=== PATIENT | male | born 1955 | race Caucasian/White ===

== ENCOUNTER 2020-05-30 16:06 | Outpatient (CLI) | payer BC, MEDICARE, SELFPAY ==
--- NOTE | ~2020-05-30 | CT_ITS ---
EXAMINATION: CT abdomen pelvis wo con DATE: 05/30/2020 16:56 INDICATION: Abdominal pain. TECHNIQUE: Computed tomography (CT) of the abdomen and pelvis was performed without intravenous contr ast. Automated exposure control and iterative reconstruction technique were employed. The dose-length product was 1155.89 mGy-cm. COMPARISON: CT abdomen and pelvis 10/25/2009 FINDINGS: The visualized portions of the lung bases are clear without pneumonia or pleural effusion. The heart size is normal. No pericardial effusion. The liver and spleen are normal. There are gallsto carlos in the gallbladder, which is normal in size. The pancreas and adrenal glands are normal. There is a 2 mm stone in right kidney. There are peripelvic cysts in left kidney measuring up to 2.8 cm. Ther e is diverticulosis of the colon without evidence of diverticulitis. There are no dilated loops of taylor wel. The appendix is normal. There is an umbilical hernia containing fat. There are no pathologically enlarged lymph nodes. There is no free intraperitoneal fluid. There is mild thoracolumbar spondylosi s. IMPRESSION: 1. Umbilical hernia containing fat. 2. Cholelithiasis. Reviewed, dictated and finalized at location A. E MASTER
[2020-05-30 16:46] LABS: Hematocrit 43.5 % (42.0-52.0); Mean Corpuscular HGB Conc 34.5 g/dl (32-36); Mean Corpuscular Hemoglobin 30.5 pg (26-34); Mean Corpuscular Volume 88.4 fl (80-100); Mean Platelet Volume 9.5 fl (7.4-10.4); Platelet Count Result 200 k/mm3 (150-375); Red Blood Count 4.92 M/mm3 (4.6-6.20); Red Cell Distribution Width 13.4 % (11.5-14.5)
[2020-05-30 16:58] LABS: Alanine Aminotransferase 17 U/L (4-50); Albumin Level 4.1 g/dL (3.5-5.1); Alkaline Phosphatase 77 U/L (38-126); Anion Gap 2 mmol/L (8-16); Aspartate Amino Transferase 22 U/L (17-59); Bilirubin,Total 0.7 mg/dL (0.2-1.3); Blood Urea Nitrogen 15 mg/dL (9-20); Calcium 9.1 mg/dL (8.4-10.2); Carbon Dioxide 32 mmol/L (22-30); Chloride 103 mmol/L (98-107); Cholesterol 199 mg/dL (0-200); Estimated Glomerular Filt Rate > 60; Glucose 116 mg/dL (75-110); HDL Direct 41 mg/dL; Potassium 4.7 mmol/L (3.4-5.0); Sodium 137 mmol/L (137-145); Triglycerides 241 mg/dL (<150)
[2020-05-30 17:09] LABS: LDL Cholesterol Direct 105 mg/dL
[2020-05-30 17:13] LABS: Add Urine Microscopic? YES; Appearance Urine Clear (Clear); Bilirubin Urine Negative (Negative); Blood Urine Negative (Negative); Color Urine Yellow (Yellow); Glucose Urine UA Negative (Negative); Ketones Urine Negative (Negative); Leukocyte Esterase Ur Negative LEU/UL (NEGATIVE); Mucus Urine Rare /lpf; Nitrate Urine Negative (Negative); Protein Urine Negative (Negative); RBC Urine 0-2 /hpf (0-2); Squamous Epithelial Cell Urine Occasional /hpf (Few); WBC Urine 0-3 /hpf (0-3)
[2020-05-30 17:29] LABS: Prostate Specific Antigen 0.6 ng/mL (< OR = 4.0)
[2020-05-30 18:40] LABS: Free T4 Free Thyroxine 0.74 ng/mL (0.78-2.19)
== END 2020-05-30 16:07 | disposition home or self-care (01) ==
PROVIDERS: PCP Emergency Medicine; Visit Provider Emergency Medicine
DX: K42.9 Umbilical hernia without obstruction or gangrene (principal); I10 Essential (primary) hypertension; K80.20 Calculus of gallbladder without cholecystitis without obstruction
CPT/HCPCS: 36415; 74176; 80053; 80061; 81001; 82607; 82746; 83036; 84153; 84439; 84443; 85027

== ENCOUNTER → 2020-05-31 16:26 | Outpatient (CLI) | payer BC, MEDICARE, SELFPAY ==
--- NOTE | ~2020-05-31 | XR_ITS ---
EXAMINATION:XR cervical spine 4-5V DATE: 05/31/2020 16:47 INDICATION: Bilateral hand numbness and tingling TECHNIQUE: AP, lateral, lateral swimmers and odontoid views of the cervical spine are provided. COMPARISON: None FINDINGS: 2 mm anterolisthesis C4 on C5. Straightening of the normal cervical lordosis. Odontoid is intact. No rmal atlantoaxial interval. Vertebral body heights are normal. Minimal disc height loss at C4-C5. Mul tilevel moderate facet osteoarthritis most prominent on the left at C4-C5. Prevertebral soft tissues are normal. Visualized bilateral upper lung zones are clear. IMPRESSION: 1. 2 mm anterolisthesis 4 on C5 with minimal associated disc height loss and moderate left-sided face t osteoarthritis at this level. Reviewed, dictated and finalized at location A. HOBBER IMPRESSION: 1. 2 mm anterolisthesis 4 on C5 with minimal associated disc height loss and mo derate left-sided facet osteoarthritis at this level.
== END ==
PROVIDERS: PCP Emergency Medicine; Visit Provider Emergency Medicine
DX: R20.2 Paresthesia of skin (principal); M50.30 Other cervical disc degeneration, unspecified cervical region
CPT/HCPCS: 72050

== ENCOUNTER 2020-08-27 13:01 | Outpatient (CLI) | payer BC, MEDICARE, SELFPAY ==
--- NOTE | ~2020-08-27 | DEXA_ITS ---
Bone Density Report Name: Juanjo Early Age: 64 Sex: Male Ethnicity: White Date of : 1955 Indication: height loss; prior fracture; Referring Provider: Robert Arreaga Study: Bone densitometry was performed. Exam Date: August 27, 2020 Accession number: [id number] Bone Density: Region BMD T-score Z-score Classification AP Spine (L1-L4) 1.087 0.0 0.8 Normal World Health Organization criteria for BMD impression classify patients as: Normal (T-score at or above -1.0), Osteopenia (T-score between -1.0 and -2.5), or Osteoporosis (T-score at or below -2.5). Clinical Information Provided by Patient: Have had a previous hip or vertebral fracture Has had a low trauma fracture Has used the following medications: Vitamin D Patient maximum height was 72 Drinks caffeinated beverages Impression: The patient has normal bone mass. The patient has risk factors, including: previous fracture. Discussion: INCREASED RISK OF FRACTURE DUE TO HISTORY OF LOW TRAUMA FRACTURE. The patient's previous fracture puts the patient at high risk of a future fracture. In untreated patients, the risk of osteoporotic fracture increases approximately two-fold for each 1.0 SD decrease in T-score. Low bone density is not the only risk factor for fracture; also consider factors such as patient's age, frailty or poor health, risk of falling, risk of injury, previous osteoporotic fracture, family history of osteoporosis, cigarette smoking, low body weight, etc. Not everyone with a low trauma fracture has osteoporosis; osteomalacia and other metabolic bone disorders should also be considered. Patients who have osteoporosis should be evaluated for specific diseases and conditions (secondary causes) that may cause or contribute to bone loss and fracture risk. National Osteoporosis Foundation (NOF) recommends pharmacologic intervention for patients with a prior low trauma hip or vertebral fracture regardless of BMD T-score. The patient should follow a healthful lifestyle (good nutrition with adequate calcium and vitamin D, and appropriate weight-bearing exercise). Follow-Up: Consider a repeat BMD and Vertebral Fracture Assessment (VFA) exam in 2 years or sooner if medically necessary, to reassess this patient's status. Reported by: LUBNA on 08/27/2020 1:39:00 PM. Reviewed, dictated and finalized at location Amso TILLMAN
[2020-08-27 14:35] LABS: Rheumatoid Factor < 8.6 IU/ML (<12)
[2020-08-27 15:06] LABS: Erythrocyte Sedimentation Rate 17 mm/hr (0-20)
[2020-08-27 15:41] LABS: Free T4 Free Thyroxine 0.68 ng/mL (0.78-2.19)
[2020-08-30 06:07] LABS: Thyroid Peroxidase Antibodies <1 IU/mL (<9)
[2020-08-30 07:19] LABS: Triiodothyronine T3 Free 3.4 pg/mL (2.3-4.2)
== END 2020-08-27 13:02 | disposition home or self-care (01) ==
PROVIDERS: PCP Emergency Medicine; Visit Provider Emergency Medicine
DX: S82.892A Other fracture of left lower leg, initial encounter for closed fracture (principal); M25.572 Pain in left ankle and joints of left foot; X58.XXXA Exposure to other specified factors, initial encounter
CPT/HCPCS: 36415; 77080; 84439; 84443; 84481; 85652; 86038; 86376; 86430

== ENCOUNTER 2020-12-11 15:25 | Outpatient (CLI) | payer BC, MEDICARE, SELFPAY ==
[2020-12-11 16:27] LABS: Hemoglobin A1C 6.4 % (<5.7)
[2020-12-11 16:45] LABS: Creatinine Urine 116.8 mg/dL
[2020-12-11 16:52] LABS: Microalbumin Urine Random < 6.0 mg/L (0-16.7)
[2020-12-11 16:53] LABS: MALB Creatinine Ratio < 5.1 mg/g (0-30)
[2020-12-14 04:42] LABS: Thyroid Peroxidase Antibodies <1 IU/mL (<9)
[2020-12-14 05:36] LABS: Triiodothyronine T3 Free 3.4 pg/mL (2.3-4.2)
== END 2020-12-11 15:26 | disposition home or self-care (01) ==
LOC: ANHLAB 15:32
PROVIDERS: PCP Emergency Medicine; Visit Provider Emergency Medicine
DX: E03.9 Hypothyroidism, unspecified (principal)
CPT/HCPCS: 36415; 82043; 83036; 84439; 84443; 84481; 86376

== ENCOUNTER 2021-01-22 11:39 | Outpatient (CLI) | payer BC, MEDICARE, SELFPAY ==
--- NOTE | ~2021-01-22 | XR_ITS ---
EXAMINATION: XR chest 2V DATE: 01/22/2021 11:54 INDICATION: Upper respiratory infection TECHNIQUE: PA and lateral views of the chest are obtained. COMPARISON: None available FINDINGS: There is a 10 mm nodule in the right lower lung zone. Minimal airspace opacities are presen t in the medial aspect of the right lower lobe. There is no pleural effusion or pneumothorax. The car diomediastinal silhouette is normal. There is mild thoracic spondylosis. IMPRESSION: 1. Minimal right lower lobe airspace opacities, consistent with atelectasis versus pneumonia. 2. Right lower lung zone nodule. Follow-up with CT of the chest is recommended. Reviewed, dictated and finalized at location B. IMPRESSION: 1. Minimal right lower lobe airspace opacities, consistent with atelectasis rosemarie red pneumonia. 2. Right lower lung zone nodule. Follow-up with CT of the chest is recommended.
== END 2021-01-22 11:40 | disposition home or self-care (01) ==
LOC: ANHIMG 11:46
PROVIDERS: PCP Emergency Medicine; Visit Provider Emergency Medicine
DX: J06.9 Acute upper respiratory infection, unspecified (principal)
CPT/HCPCS: 71046

== ENCOUNTER 2021-02-03 09:08 | Outpatient (CLI) | payer BC, MEDICARE, SELFPAY ==
--- NOTE | ~2021-02-03 | CT_ITS ---
EXAMINATION:CT diagnostic chest wo con DATE: 02/03/2021 09:39 INDICATION: Right lung nodule. TECHNIQUE: Computed tomography (CT) of the chest was performed without intravenous contrast. Automate d exposure control and iterative reconstruction technique were employed. The dose-length product (DLP ) was 301.71 mGy-cm. COMPARISON: CT abdomen and pelvis 05/30/2020 FINDINGS: There is mild scarring at the lung apices. There is a 1.9 cm groundglass opacity in right l ower lobe, new from 05/30/20. There is mild atelectasis bilaterally. There is a 7 mm nodule in left lo wer lobe. There is a 4 mm nodule in left lower lobe. These findings are new from 05/30/20. No pleural effusion. The heart size is normal. There are coronary artery calcifications. No pericardial effusion . There are gallstones in the gallbladder, which is normal in size. There is moderate thoracic spondy losis. IMPRESSION: 1. New pulmonary nodules, probably benign. Noncontrast low-dose chest CT is recommended in 6 months. Reviewed, dictated and finalized at location A. IMPRESSION: 1. New pulmonary nodules, probably benign. Noncontrast low-dose chest CT is rec ommended in 6 months.
== END 2021-02-03 09:09 | disposition home or self-care (01) ==
LOC: ANHIMG 09:12
PROVIDERS: PCP Emergency Medicine; Visit Provider Emergency Medicine
DX: R91.8 Other nonspecific abnormal finding of lung field (principal)
CPT/HCPCS: 71250

== ENCOUNTER 2021-06-16 16:07 | Outpatient (CLI) | payer BC, MEDICARE, SELFPAY ==
[2021-06-16 16:53] LABS: Basophils Absolute Auto 0.1 K/mm3 (0.0-0.1); Basophils Percent Auto 0.8 % (0.2-1.2); Eosinophils Absolute Auto 0.2 K/mm3 (0-0.3); Eosinophils Percent Auto 2.7 % (0-4.4); Hemoglobin 14.5 g/dL (14.0-18.0); Immature Granulocyte Absolute 0.01 K/mm3 (0.00-0.031); Immature Granulocyte Percent A 0.1 % (0-0.5); Lymphocytes Absolute Auto 2.06 K/mm3 (0.9-3.2); Lymphocytes Percent Auto 28.2 % (18.3-44.2); Mean Corpuscular HGB Conc 34.5 g/dl (32-36); Mean Corpuscular Hemoglobin 29.8 pg (26-34); Mean Corpuscular Volume 86.2 fl (80-100); Mean Platelet Volume 9.6 fl (7.4-10.4); Monocytes Absolute Auto 0.5 K/mm3 (0.1-0.6); Monocytes Percent Auto 6.4 % (2.6-8.5); Neutrophils Absolute Auto 4.5 K/mm3 (1.3-6.7); Neutrophils Percent Auto 61.8 % (45.5-73.1); Platelet Count Result 191 k/mm3 (150-375); Red Blood Count 4.87 M/mm3 (4.6-6.20); Red Cell Distribution Width 13.6 % (11.5-14.5); White Blood Count 7.3 K/mm3 (4.5-10.0)
[2021-06-16 17:06] LABS: Alanine Aminotransferase 21 U/L (4-50); Albumin Level 4.4 g/dL (3.5-5.1); Alkaline Phosphatase 75 U/L (38-126); Anion Gap 6 mmol/L (8-16); Aspartate Amino Transferase 27 U/L (17-59); Bilirubin,Total 0.5 mg/dL (0.2-1.3); Blood Urea Nitrogen 18 mg/dL (9-20); Carbon Dioxide 24 mmol/L (22-30); Chloride 103 mmol/L (98-107); Cholesterol 107 mg/dL (0-200); Estimated Glomerular Filt Rate > 60; Glucose 112 mg/dL (65-110); HDL Direct 36 mg/dL; Magnesium 2.2 mg/dL (1.6-2.3); Sodium 133 mmol/L (137-145); Triglycerides 167 mg/dL (<150)
[2021-06-16 17:17] LABS: LDL Cholesterol Direct 40 mg/dL; NT Pro B Type Natriuretic Pept 38 pg/mL (5-100); Troponin I < 0.012 ng/mL (0.000-0.034)
[2021-06-16 17:25] LABS: MALB Creatinine Ratio 4.8 mg/g (0-30); Microalbumin Urine Random 8.5 mg/L (0-16.7)
[2021-06-16 17:26] LABS: Vitamin D 25 Hydroxy 44.5 ng/mL
== END 2021-06-16 16:08 | disposition home or self-care (01) ==
LOC: ANHLAB 16:15
PROVIDERS: PCP Emergency Medicine
DX: N28.1 Cyst of kidney, acquired (principal); K57.30 Diverticulosis of large intestine without perforation or abscess without bleeding; K80.20 Calculus of gallbladder without cholecystitis without obstruction; K42.9 Umbilical hernia without obstruction or gangrene; I25.10 Atherosclerotic heart disease of native coronary artery without angina pectoris; I87.2 Venous insufficiency (chronic) (peripheral); I34.0 Nonrheumatic mitral (valve) insufficiency; E53.8 Deficiency of other specified B group vitamins; R73.03 Prediabetes
CPT/HCPCS: 36415; 80053; 80061; 82043; 82306; 82607; 83735; 83880; 84484; 85025

== ENCOUNTER 2021-09-01 15:25 | Outpatient (CLI) | payer BC, MEDICARE, SELFPAY ==
[2021-09-01 16:50] LABS: Anion Gap 6 mmol/L (8-16); Blood Urea Nitrogen 14 mg/dL (9-20); CRP < 0.5 mg/dL (<1.0); Calcium 8.4 mg/dL (8.4-10.2); Carbon Dioxide 27 mmol/L (22-30); Chloride 103 mmol/L (98-107); Cholesterol 126 mg/dL (0-200); Estimated Glomerular Filt Rate > 60; Glucose 97 mg/dL (65-110); HDL Direct 35 mg/dL; Potassium 3.8 mmol/L (3.4-5.0); Sodium 136 mmol/L (137-145); Triglycerides 428 mg/dL (<150)
[2021-09-01 16:59] LABS: LDL Cholesterol Direct 43 mg/dL
== END 2021-09-01 15:26 | disposition home or self-care (01) ==
LOC: ANHLAB 15:30
PROVIDERS: PCP Emergency Medicine
DX: R91.1 Solitary pulmonary nodule (principal); J11.1 Influenza due to unidentified influenza virus with other respiratory manifestations; N28.1 Cyst of kidney, acquired; K57.30 Diverticulosis of large intestine without perforation or abscess without bleeding; K80.20 Calculus of gallbladder without cholecystitis without obstruction; K52.9 Noninfective gastroenteritis and colitis, unspecified; Z86.16 Personal history of COVID-19; I25.10 Atherosclerotic heart disease of native coronary artery without angina pectoris; I87.2 Venous insufficiency (chronic) (peripheral)
CPT/HCPCS: 36415; 80048; 80061; 86140

== ENCOUNTER 2021-11-21 13:59 | Outpatient (CLI) | payer BC, MEDICARE, SELFPAY ==
--- NOTE | ~2021-11-21 | CT_ITS ---
EXAMINATION: CT diagnostic chest wo con DATE: 11/21/2021 14:20 INDICATION: Pulmonary nodule TECHNIQUE: Computed tomography (CT) of the chest was performed without intravenous contrast. The dose -length product (DLP) was 327.71 mGy-cm. Automated exposure control and iterative reconstruction tech Trial[employer] were employed. COMPARISON: 02/03/2021 FINDINGS: Previously described nodules in the left lower lobe and groundglass nodule of the right low er lobe have resolved. There is a stable 3 mm nodule in the superior segment of the right lower lobe. The lungs are free of acute opacities. No pleural effusion or pneumothorax. No pathologically enlarg ed thoracic lymph nodes are identified. The heart size is normal. There is calcified coronary artery atherosclerosis. There is moderate thoracic spondylosis. Stones are present in the nondistended gall bladder. IMPRESSION: 1. Interval resolution of the previously described nodules of the lower lobes, consistent with resolv ing infection/inflammation. 2. Cholelithiasis without evidence of cholecystitis. Reviewed, dictated and finalized at location B. IMPRESSION: 1. Interval resolution of the previously described nodules of the lower lobes, consistent with resolving infection/inflammation. 2. Cholelithiasis without evidence of cholecystitis.
== END 2021-11-21 14:00 | disposition home or self-care (01) ==
PROVIDERS: PCP Emergency Medicine; Visit Provider Emergency Medicine
DX: R91.1 Solitary pulmonary nodule (principal); K80.20 Calculus of gallbladder without cholecystitis without obstruction
CPT/HCPCS: 71250

== ENCOUNTER 2022-01-27 08:02 | Outpatient (CLI) | payer BC, MEDICARE, SELFPAY ==
--- NOTE | ~2022-01-27 | US_ITS ---
EXAMINATION: US art doppler w press LE BI DATE: 01/27/2022 09:13 INDICATION: Lower limb claudication TECHNIQUE: Segmental pressures and plethysmographic and Doppler waveforms of the brachial and lower e xtremity arteries were obtained. COMPARISON: None. FINDINGS: Right and left brachial artery pressures of 132 mm Hg and 161 mm Hg, respectively, are concordant (no rmal difference <= 30 mmHg). The right and left high-thigh pressure indices are 1.28 and 1.19, respec tively (normal > 1.2). The right ankle-brachial index (EDITH) is 0.99 (normal >= 0.9-1). The right great toe-brachial index (T BI) is 0.79 (normal >= 0.6-0.8). The right lower extremity segmental pressure gradients are increased between the right jdvit-hph-izcm popliteal artery and the arteries at the right ankle (normal gradie nts <= 20-30 mmHg between adjacent levels on the same leg or the same levels on the two legs). Arteri al waveforms are biphasic with brisk systolic upstrokes throughout the arteries of the right lower li mb. The left EDITH is 1.07. The left TBI is 0.70. The left lower extremity segmental pressure gradients are increased between the left dorsalis pedis artery and the left yebmu-njr-ghvv popliteal artery. Arter ial waveforms are biphasic with brisk systolic upstrokes throughout the arteries of the right lower l imb. IMPRESSION: 1. No significant arterial occlusive disease with normal bilateral ABIs and TBI's. Reviewed, dictated and finalized at location A. IMPRESSION: 1. No significant arterial occlusive disease with normal bilateral ABIs and TBI 's.
== END 2022-01-27 08:03 | disposition home or self-care (01) ==
LOC: ANHIMG 08:05
PROVIDERS: PCP Emergency Medicine; Visit Provider Emergency Medicine
DX: I73.9 Peripheral vascular disease, unspecified (principal)
CPT/HCPCS: 93923

== ENCOUNTER 2022-04-21 08:55 | Outpatient (CLI) | payer BC, MEDICARE, SELFPAY ==
--- NOTE | ~2022-04-21 | XR_ITS ---
EXAMINATION: XR chest 2V 04/21/2022 09:35 INDICATION: Cough for 10 days PROCEDURE: PA and lateral views of the chest COMPARISON: 01/23/2020 FINDINGS: The lungs are clear. The cardiomediastinal silhouette is within normal limits. There are no pleural effusions. There is no pneumothorax suspected. IMPRESSION: 1: NO ACUTE CARDIOPULMONARY DISEASE. Reviewed, dictated and finalized at location A.
[2022-04-21 10:04] LABS: SARS-CoV-2 RNA PCR Negative
== END 2022-04-21 08:56 | disposition home or self-care (01) ==
PROVIDERS: PCP Emergency Medicine; Visit Provider Emergency Medicine
DX: J06.9 Acute upper respiratory infection, unspecified (principal); R05.9 Cough, unspecified; Z20.822 Contact with and (suspected) exposure to COVID-19
CPT/HCPCS: 71046; U0003; U0005

== ENCOUNTER 2022-08-12 15:50 | Outpatient (CLI) | payer BC, MEDICARE, SELFPAY ==
[2022-08-12 16:23] LABS: Hematocrit 43.7 % (42.0-52.0); Hemoglobin 14.5 g/dL (14.0-18.0); Mean Corpuscular HGB Conc 33.2 g/dl (32-36); Mean Corpuscular Hemoglobin 29.1 pg (26-34); Mean Corpuscular Volume 87.8 fl (80-100); Mean Platelet Volume 9.4 fl (7.4-10.4); Platelet Count Result 211 k/mm3 (150-375); Red Blood Count 4.98 M/mm3 (4.6-6.20); Red Cell Distribution Width 13.7 % (11.5-14.5); White Blood Count 7.9 K/mm3 (4.5-10.0)
[2022-08-12 16:37] LABS: Alanine Aminotransferase 23 U/L (6-50); Albumin Level 4.3 g/dL (3.5-5.1); Alkaline Phosphatase 97 U/L (38-126); Anion Gap 8 mmol/L (8-16); Aspartate Amino Transferase 25 U/L (17-59); Bilirubin,Total 0.6 mg/dL (0.2-1.3); Blood Urea Nitrogen 16 mg/dL (9-20); Calcium 8.5 mg/dL (8.4-10.2); Carbon Dioxide 26 mmol/L (22-30); Chloride 102 mmol/L (98-107); Cholesterol 164 mg/dL (0-200); Estimated Glomerular Filt Rate > 60; Glucose 108 mg/dL (65-110); HDL Direct 34 mg/dL; Sodium 136 mmol/L (137-145); Triglycerides 495 mg/dL (<150)
[2022-08-12 16:48] LABS: Hemoglobin A1C 6.6 % (<5.7)
[2022-08-12 16:51] LABS: LDL Cholesterol Direct 63 mg/dL
[2022-08-12 17:04] LABS: Creatinine Urine 138.4 mg/dL
[2022-08-12 17:08] LABS: MALB Creatinine Ratio 4.5 mg/g (0-30); Microalbumin Urine Random 6.2 mg/L (0-16.7)
[2022-08-12 17:13] LABS: Free T4 Free Thyroxine 0.74 ng/mL (0.78-2.19)
== END 2022-08-12 15:51 | disposition home or self-care (01) ==
PROVIDERS: PCP Emergency Medicine; Visit Provider Emergency Medicine
DX: E03.9 Hypothyroidism, unspecified (principal); E11.9 Type 2 diabetes mellitus without complications; I10 Essential (primary) hypertension
CPT/HCPCS: 36415; 80053; 80061; 82043; 83036; 84439; 84443; 85027

== ENCOUNTER 2022-08-14 13:10 | Outpatient (CLI) | payer BC, MEDICARE, SELFPAY ==
--- NOTE | ~2022-08-14 | CT_ITS ---
EXAMINATION: CT diagnostic chest wo con DATE: 08/14/2022 13:44 INDICATION: Lung nodule TECHNIQUE: Computed tomography (CT) of the chest was performed without intravenous contrast. Automate d exposure control and iterative reconstruction technique were employed. Exam dose: 341.99 mGy-cm to allan exam DLP. COMPARISON: 04/21/2022 2 view chest 11/21/2021 CTA chest FINDINGS: No pulmonary infiltrate or consolidation or pulmonary mass lesion is detected. Normal heart size. No thoracic aortic aneurysm or dissection. Is mild thoracic aortic calcification. Coronary artery calcifications are noted. No pericardial or pleural effusion. No hilar or mediastinal mass lesion or lymphadenopathy. Probable cholelithiasis. Normal morphology of the adrenal glands. Included skeletal structures are unremarkable. IMPRESSION: No significant abnormality Reviewed, dictated and finalized at Location A. Reviewed, dictated and finalized at location B. IMPRESSION: No significant abnormality
== END 2022-08-14 13:11 | disposition home or self-care (01) ==
LOC: ANHIMG 13:12
PROVIDERS: PCP Emergency Medicine; Visit Provider Emergency Medicine
DX: R91.1 Solitary pulmonary nodule (principal)
CPT/HCPCS: 71250

== ENCOUNTER 2022-08-24 16:02 | Outpatient (CLI) | payer BC, MEDICARE, SELFPAY ==
[2022-08-24 17:18] LABS: Thyroid Stimulating Hormone 0.933 uIU/mL (0.465-4.680)
[2022-08-24 17:39] LABS: Free T4 Free Thyroxine 0.76 ng/mL (0.78-2.19)
[2022-08-27 03:43] LABS: Triiodothyronine T3 Free 3.4 pg/mL (2.3-4.2)
[2022-08-28 06:43] LABS: Thyroid Peroxidase Antibodies <1 IU/mL (<9)
== END 2022-08-24 16:03 | disposition home or self-care (01) ==
LOC: ANHLAB 16:04
PROVIDERS: PCP Emergency Medicine; Visit Provider Emergency Medicine
DX: E03.9 Hypothyroidism, unspecified (principal)
CPT/HCPCS: 36415; 84439; 84443; 84481; 86376

== ENCOUNTER 2023-01-19 15:36 | Outpatient (CLI) | payer BC, MEDICARE, SELFPAY ==
[2023-01-19 16:19] LABS: Hematocrit 42.8 % (42.0-52.0); Hemoglobin 14.3 g/dL (14.0-18.0); Mean Corpuscular HGB Conc 33.4 g/dl (32-36); Mean Corpuscular Hemoglobin 29.5 pg (26-34); Mean Corpuscular Volume 88.4 fl (80-100); Platelet Count Result 190 k/mm3 (150-375); Red Blood Count 4.84 M/mm3 (4.6-6.20); Red Cell Distribution Width 13.8 % (11.5-14.5); White Blood Count 6.5 K/mm3 (4.5-10.0)
[2023-01-19 16:34] LABS: Alanine Aminotransferase 20 U/L (6-50); Alkaline Phosphatase 88 U/L (38-126); Anion Gap 4 mmol/L (8-16); Aspartate Amino Transferase 22 U/L (17-59); Bilirubin,Total 0.4 mg/dL (0.2-1.3); Blood Urea Nitrogen 17 mg/dL (9-20); Calcium 8.7 mg/dL (8.4-10.2); Carbon Dioxide 31 mmol/L (22-30); Chloride 101 mmol/L (98-107); Cholesterol 168 mg/dL (0-200); Estimated Glomerular Filt Rate > 60; Glucose 141 mg/dL (65-110); HDL Direct 36 mg/dL; Potassium 4.2 mmol/L (3.4-5.0); Sodium 136 mmol/L (137-145); Triglycerides 482 mg/dL (<150)
[2023-01-19 16:45] LABS: LDL Cholesterol Direct 73 mg/dL
[2023-01-19 17:05] LABS: Prostate Specific Antigen 0.5 ng/mL (< OR = 4.0); Thyroid Stimulating Hormone 0.999 uIU/mL (0.465-4.680)
[2023-01-19 19:41] LABS: Creatinine Urine 149.5 mg/dL
[2023-01-19 20:03] LABS: MALB Creatinine Ratio < 4.0 mg/g (0-30); Microalbumin Urine Random < 6.0 mg/L (0-16.7)
== END 2023-01-19 15:37 | disposition home or self-care (01) ==
PROVIDERS: PCP Emergency Medicine; Visit Provider Emergency Medicine
DX: E11.9 Type 2 diabetes mellitus without complications (principal); I10 Essential (primary) hypertension; E78.5 Hyperlipidemia, unspecified
CPT/HCPCS: 36415; 80053; 80061; 82043; 84153; 84439; 84443; 85027; G0103

== ENCOUNTER 2023-08-26 15:49 | Outpatient (CLI) | payer BC, MEDICARE, SELFPAY ==
[2023-08-26 16:24] LABS: Cholesterol 110 mg/dL (0-200); HDL Direct 36 mg/dL; Triglycerides 246 mg/dL (<150)
[2023-08-26 16:35] LABS: LDL Cholesterol Direct 52 mg/dL
[2023-08-26 17:30] LABS: Free T4 Free Thyroxine 0.87 ng/mL (0.78-2.19)
== END 2023-08-26 15:50 | disposition home or self-care (01) ==
LOC: ANHLAB 15:51
PROVIDERS: PCP Emergency Medicine; Visit Provider Emergency Medicine
DX: E78.5 Hyperlipidemia, unspecified (principal)
CPT/HCPCS: 36415; 80061; 84439; 84443

== ENCOUNTER 2023-10-15 09:42 | Outpatient (CLI) | payer BC, MEDICARE, SELFPAY ==
[2023-10-15 10:54] LABS: Cholesterol 111 mg/dL (0-200); HDL Direct 41 mg/dL; Triglycerides 233 mg/dL (<150)
[2023-10-15 11:05] LABS: LDL Cholesterol Direct 54 mg/dL
[2023-10-18 10:34] LABS: CRP, High Sensitivity 0.6 mg/L
[2023-10-20 21:03] LABS: Lipoprotein A <10 nmol/L
== END 2023-10-15 09:43 | disposition home or self-care (01) ==
PROVIDERS: PCP Emergency Medicine; Visit Provider Internal Medicine Cardiovascular Disease
DX: N28.1 Cyst of kidney, acquired (principal); R91.1 Solitary pulmonary nodule; J11.1 Influenza due to unidentified influenza virus with other respiratory manifestations; K27.9 Peptic ulcer, site unspecified, unspecified as acute or chronic, without hemorrhage or perforation
CPT/HCPCS: 36415; 80061; 83695; 86141

== ENCOUNTER 2024-10-12 14:51 | Outpatient (CLI) | payer BC, MEDICARE, SELFPAY ==
--- NOTE | ~2024-10-12 | XR_ITS ---
XR hip BI 2V w AP pelvis 10/12/2024 15:50 Indication: Groin pain Procedure: AP pelvis and 2 views each hip Comparison: No prior studies for comparison. Findings: Pelvic rings intact. There is mild osteoarthritis of the hips. There is an old healed left femoral diaphyseal fracture. There is heterotopic ossification adjacent to the left femur proximally. No acute fracture. There is mild osteoarthritis of the hips. Pelvic rings intact. Mild osteitis pubi s. Impression: 1: No acute fracture. Reviewed, dictated and finalized at location A. Impression: 1: No acute fracture.
--- OUTSIDE RECORDS SUMMARY | 2024-10-12 14:57 | XMS_ITS | Clinical Summary ---
Author Organization [facility] Address [address] [place] [address] Care Team Providers Care Traffic Investigator Name Role Phone Robert Arreaga MD Primary Care Provider [phone] Allergies No known active allergies Medications Vascepa 1 gram capsule 04/14/20 21 Active ezetimibe (ZETIA) 10 mg tablet ezetimibe 10 mg tablet 06/12/19 21 Active rosuvastatin (CRESTOR) 40 mg tablet 05/15/20 21 Active losartan (COZAAR) 50 mg tablet 05/15/20 21 Active omeprazole OTC (PriLOSEC OTC) 20 mg EC tablet Take by mouth 06/12/19 21 Active cyanocobalamin (Vitamin B-12) 1,000 mcg tablet cyanocobalamin (vit B-12) 1,000 mcg tablet 06/13/19 20 Active cholecalcifero l (VITAMIN D-3) 50,000 unit capsule cholecalciferol (vitamin D3) 1,250 mcg (50,000 unit) capsule 06/12/19 21 Active aspirin 81 mg enteric coated tablet 04/14/20 21 Active hydroCHLOROthi azide (MICROZIDE) 12.5 mg capsule Take 12.5 mg by mouth every morning 09/04/19 22 Active omeprazole (PriLOSEC) 20 mg capsule 11/12/19 22 Active metFORMIN XR (GLUCOPHAGE XR) 500 mg 24 hr tablet metformin ER 500 mg tablet,extended release 24 hr 08/16/19 22 Active Active Problems Problem Noted Date Diagnosed Date Low serum T4 level 12/01/2021 Assessment & Plan (12/01/2021 4:08 PM CDT): Patient without history of thyroid disease He was found to have low Free T4 of 0.74 earlier in 2021 No other labs available This could be part of primary hypothyroidism or normal fluctuation in T4 levels. Plan: The abnormal lab reviewed and explained to patient We will check TSH with repeat free T4 Follow up and further recommendation will be decided after we obtain above test results Peptic ulcer disease 08/14/2021 Pulmonary nodule 08/14/2021 Diabetes mellitus 2020 Peripheral vascular disease 09/13/2020 Neuropathy due to type 2 diabetes mellitus 09/13 Chronic peripheral venous hy pertension with lower extremity complication 09/13/2020 Umbilical hernia 06/12/2020 Renal cyst 06/12/2020 History of severe acute resp iratory syndrome coronavirus 2 (SARS-CoV-2) disease 06/12/2020 Gallstones 06/12/2020 Diverticulosis of colon 06/12/2020 Cardiovascular symptoms 06/12/2020 Cardiovascular symptoms 06/12/2020 Venous insufficiency 11/27/2019 Mitral valve insufficiency 06/13/2019 Vitamin D deficiency 04/13/2019 Prediabetes 04/13/2019 B12 deficiency 04/13/2019 Primary hypertension 04/12/2019 Assessment & Plan (12/01/2021 4:06 PM CDT): Controlled with medication - low salt diet - continue medication per PCP Obesity 04/12/2019 Neuropathy 04/12/2019 Hypertriglyceridemia 04/12/2019 Nontraumatic complete tear of left rotator cuff 02/22/2019 Sleep apnea 01/24/2014 Surgical History Surgery Date Site/Laterality Comments HAND SURGERY 05/17/1969 - 05/16/1970 Left FINGER SURGERY 05/17/1979 - 05/16/1980 Left LEG SURGERY Bilateral KIDNEY STONE SURGERY 05/17/2009 - 05/16/2010 SHOULDER SURGERY 06/17/2013 - 07/14/2013 Right SHOULDER SURGERY 02/14/2019 - 03/16/2019 Left ANKLE SURGERY Left Medical History Medical History Date Comments Arthritis Neuropathy due to type 2 diabetes mellitus (HCC) 09/13/2020 Renal cyst Gallstones Diverticulosis of colon Umbilical hernia Hypertension Vitamin D deficiency Sleep apnea, obstructive Vitamin B 12 deficiency Hypertriglyceridemia Mitral valve insufficiency Peripheral vascular disease Family History Medical History Relation Name Comments Heart disease Father Lung disease Mother Relation Name Status Comments Father Mother Social History Tobacco Use Types Packs/Day Years Used Date Smoking Tobacco: Never Smokeless Tobacco: Never AUDIT-C Answer Date Recorded Q1: How often do you have a drink containing alc ohol? Monthly or less 06/23/2021 Average Number of Drinks Not on file 022 Frequency of Binge Drinking Not on file 11/2021 Personal Safety Answer Date Recorded Getting School Help Needed Not on file 05/15 Sex and Gender Information Value Date Recorded Sex Assigned at Not on file Legal Sex Male 8:07 PM HAND LACER Gender Identity Not on file Sexual Orientation Not on file Obstetrics History Last Filed Vital Signs Vital Sign Reading Time Taken Comments Blood Pressure 120/62 12/01/2021 3:35 PM CDT Pulse 74 11/24/2021 2:46 PM CDT Temperature 36.7 C (98 F) 06/02/2021 3:13 PM HAND LACER Respiratory Rate 18 11/24/2021 2:46 PM CDT Oxygen Saturation 92% 11/24/2021 2:46 PM CDT Inhaled Oxygen Concentration - - Weight 111.8 kg (246 lb 6.4 oz) 12/01/2021 3:35 PM CDT Height 180.3 cm (5' 11) 12/01/2021 3:35 PM CDT Body Mass Index 34.37 12/01/2021 3:35 PM CDT Plan of Treatment Health Maintenance Due Date Last Done Comments Albumin Creatinine Ratio, Urine 1955 Colon Cancer Screening-Colonoscopy 1955 Depression Screening 1955 Fall Risk Assessment 1955 Hemoglobin A1C 1955 Hepatitis C Screening 1955 eGFR 1955 Dilated Eye Exam 1955 Foot Exam 1955 Lipid Panel 1955 DTaP/Tdap/Td Vaccine (1 - Tdap) 1964 Hepatitis B Screening 10/18/1971 Pneumococcal vaccine 65+ (1 of 2 - PCV) 1972 Zoster Vaccine (1 of 2) 10/18/2003 Abdominal Aortic Aneurysm (AAA) Screen 2018 Well Visit 65+ 2018 Covid-19 Vaccine ( season) 01/16/202404/2022, 05/07/2021 Influenza Vaccine (Season Ended) 2025 Insurance MEDICARE [employer] OOS MEDICARE BLUE ACC CHOICE OOS Member Subscriber Plan / Payer (Ef fective 2022-Present) Name:Sharath Juanjo Mack Relation to Subscriber:Self Name:Juanjo Early Payer ID:[id number] (NAIC) Type:[facility] Address: [facility] [id number] [id number] Care Teams Traffic Investigator Relationship Specialty Start Date End Date Robert Arreaga MD PCP - General Emergency Medicine 03/10/21
--- OUTSIDE RECORDS SUMMARY | 2024-10-12 14:57 | XMS_ITS | Clinical Summary ---
Author Organization [facility] Address [address] [place] [address] Care Team Providers Care Health Coordinator Name Role Phone Robert Arreaga MD Primary Care Provider [phone] Source Comments [facility] [employer],non-owned Affiliates and Associated Physician Practices is amultiple site organization consisting of ambulatory clinics and hospital sitesin [place], [place], [place] and [place]. This disclosure is being madepursuant to the Care Everywhere program and may not contain all information available regarding this patient. Last updated 18.[facility] [employer] Allergies No known active allergies Medications * Be aware that medications may not be up to date on this document. Alwaysverify current medications with the patient. rosuvastatin (CRESTOR) 40 MG tablet Take 40 mg by mouth once daily 06/01/2019 Active losartan (COZAAR) 50 MG tablet Take 50 mg by mouth once daily 06/01/2019 Active omeprazole (PRILOSEC) 20 MG capsule Take 20 mg by mouth at bedtime Active aspirin EC (ECOTRIN) 81 MG tablet Take 81 mg by mouth once daily 06/12/2020 Active Cholecalciferol 1.25 MG (73038 UT) Take 1 capsule by mouth every 7 days 06/12/2020 Active Cyanocobalamin 1000 MCG Take 1 tablet by mouth once daily 06/13/2019 Active ezetimibe (ZETIA) 10 MG tablet Take 1 tablet by mouth once daily 06/12/2020 Active icosapent ethyl (VASCEPA) 1 g capsule Take 2 capsules by mouth 2 times daily 06/12/2020 Active caffeine (NO DOZ MAXIMUM STRENGTH) 200 MG tablet Take 1 tablet by mouth as needed Active acetaminophen CR (TYLENOL 8 HOUR) 650 MG tablet Take 650 mg by mouth every 8 hours as needed for Pain Active Omeprazole Magnesium (PRILOSEC OTC PO) Take 20 mg by mouth once daily as needed Active Active Problems Problem Noted Date Diagnosed Date Diabetes mellitus 2020 Neuropathy due to type 2 diabetes mellitus 09/13 Cardiovascular symptoms 06/12/2020 Mitral valve insufficiency 06/13/2019 Essential (primary) hypertension 04/12/2019 Hypertriglyceridemia 04/12/2019 Family History Medical History Relation Name Comments Arthritis - Rheumatoid Brother CVA Brother Hypertension Brother Alcohol abuse Father Arthritis - Rheumatoid Father CAD (Coronary Artery Disease) Father CVA Father Cancer - Other Father Cirrhosis Father Eczema Father Glaucoma Father Hypertension Father Arthritis - Rheumatoid Maternal Grandfather Hypertension Maternal Grandfather Arthritis - Rheumatoid Maternal Grandmother CVA Maternal Grandmother Hypertension Maternal Grandmother Arthritis - Rheumatoid Mother CAD (Coronary Artery Disease) Mother CVA Mother Cancer - Other Mother Diabetes - Type 2 Mother Hypertension Mother Arthritis - Rheumatoid Paternal Grandfather Eczema Paternal Grandfather Hypertension Paternal Grandfather Arthritis - Rheumatoid Paternal Grandmother CVA Paternal Grandmother Eczema Paternal Grandmother Hypertension Paternal Grandmother Arthritis - Rheumatoid Sister Asthma Sister CAD (Coronary Artery Disease) Sister CVA Sister Diabetes - Type 2 Sister Hypertension Sister Seizures Sister Relation Name Status Comments Brother Father Maternal Grandfather Maternal Grandmother Mother Paternal Grandfather Paternal Grandmother Sister Social History Tobacco Use Types Packs/Day Years Used Date Smoking Tobacco: Never Smokeless Tobacco: Never Alcohol Use Standard Drinks/Week Comments Yes 0 (1 standard drink = 0.6 oz pur e alcohol) Sex and Gender Information Value Date Recorded Sex Assigned at Not on file Legal Sex Male 1:57 PM CDT Gender Identity Not on file Sexual Orientation Not on file Last Filed Vital Signs Vital Sign Reading Time Taken Comments Blood Pressure 126/76 10/16/2020 2:22 PM CDT Pulse 84 10/16/2020 2:22 PM CDT Temperature 36.7 C (98 F) 10/16/2020 2:22 PM CDT Respiratory Rate 18 10/16/2020 2:22 PM CDT Oxygen Saturation 93% 10/16/2020 2:22 PM CDT Inhaled Oxygen Concentration - - Weight 111.8 kg (246 lb 6.4 oz) 10/16/2020 2:22 PM CDT Height 179.1 cm (5' 10.5) 10/16/2020 2:22 PM CD T Body Mass Index 34.86 10/16/2020 2:22 PM CDT Plan of Treatment Health Maintenance Due Date Last Done Comments COLOGUARD (AGES 45-75) - COL ON CA SCREENING 1955 COLON MONITORING 1953 COLONOSCOPY - COLON CA SCREENING 1953 CT COLONOGRAPHY - COLON CA SCREENING 1955 Colorectal Cancer Screening 1955 FIT - COLON CA SCREENING 1955 FLEX SIG - COLON CA SCREENING 1955 MEDICARE AWV 12 MONTHS 1955 HEPATITIS C SCREENING 10/13/1971 DTAP/TDAP/TD VACCINES (1 - Tdap) 1972 PNEUMOCOCCAL VACCINE 50+ (1 of 2 - PCV) 1972 ZOSTER VACCINE (1 of 2) 10/18/2003 Respiratory Syncytial Virus (RSV) Vaccine Pt: or over 60 yrs (1 - Risk 60-74 years 1-dose series) 2013 DIABETES RETINOPATHY SCREENING 2020 DIABETES-FOOT EXAM WITH MONOFILAMENT 2020 DIABETES-HGB A1C 2020 DIABETES-SERUM CREATININE 09/02/20212020, 09/02/2020 COVID-19 VACCINE (1 - 2023-2 5 season) 2024 DEPRESSION SCREENING 05/17/2024 DIABETES - URINE PROTEIN SCREENING 05/17/2024 INFLUENZA VACCINE (Season Ended) 2025 HEPATITIS B VACCINE Aged Out No longe r eligible based on patient's age to complete this topic HIB VACCINE Aged Out No longer eligi ble based on patient's age to complete this topic HPV VACCINE Aged Out No longer eligi ble based on patient's age to complete this topic MENINGOCOCCAL (Group B) VACCINE SHARED DECISION-MAKING Aged Out No longer eligible based on patient's age to complete this topic MENINGOCOCCAL GROUPS A/C/Y/W VACCINE Aged Out No longer eligible b ased on patient's age to complete this topic Insurance MEDICARE [facility] Care Teams Health Coordinator Relationship Specialty Start Date End Date Robert Arreaga MD [address] [place] [id number] PCP - General 07/27/22
--- OUTSIDE RECORDS SUMMARY | 2024-10-12 14:57 | XMS_ITS | Clinical Summary ---
Author Organization [facility] Address [address] [place] [address] Phone Care Team Providers Care Liquid Center Assembler Name Role Phone Robert Arreaga MD Primary Care Provider [phone] Allergies Active Allergy Reactions Criticality Noted Date Comments Penicillins Unknown 01/31/2019 Medications Caffeine (NO DOZ MAXIMUM STRENGTH PO) Take 1 Tab by mouth as needed (USES OCCASSIONALLY WHEN DRIVING LONG DISTANCE). Active Calcium Carbonate Antacid (TUMS PO) Take 2 Tabs by mouth. Active omeprazole (PRILOSEC) 10 MG CAPSULE DELAYED RELEASE Take 10 mg by mouth daily as needed. Active Phenylephrine- APAP-guaiFENes in (TYLENOL SINUS SEVERE PO) Take 1 Tab by mouth as needed. Active clotrimazole (LOTRIMIN) 1 % CreamIndicatio ns:fungal rash in groin Apply 1 Tube as needed (itching). Application Site: groin (Description and Location) Indications: fungal rash in groin Active triamcinolone (ARISTOCORT) 0.5 % CreamIndicatio ns:fungal rash Apply 1 Tube as needed. Application Site: Groin (Description and Location) Indications: fungal rash Active Active Problems Problem Noted Date Diagnosed Date Nontraumatic complete tear of left rotator cuff 02/22/2019 Family History Medical History Relation Name Comments Cancer Father COLON Coronary Artery Disease Father Diabetes Father High Cholesterol Father Hypertension Father Stroke Father Diabetes Mother Hypertension Mother Stroke Mother Relation Name Status Comments Father Mother Social History Tobacco Use Types Packs/Day Years Used Date Smoking Tobacco: Former Pipe Q uit: 1973 Smokeless Tobacco: Never Comments:SMOKED A PIPE FOR A YEAR WHEN HE WAS IN HIS 20'S Sex and Gender Information Value Date Recorded Sex Assigned at Not on file Legal Sex Male 11:02 PM CDT Gender Identity Not on file Sexual Orientation Not on file Last Filed Vital Signs Vital Sign Reading Time Taken Comments Blood Pressure 135/64 02/22/2019 4:00 PM CDT Pulse 92 02/22/2019 4:00 PM CDT Temperature 36.4 C (97.5 F) 02/22/2019 4:00 PM CDT Respiratory Rate 16 02/22/2019 4:00 PM CDT Oxygen Saturation 93% 02/22/2019 4:00 PM CDT Inhaled Oxygen Concentration - - Weight 103.9 kg (229 lb) 02/20/2019 9:00 AM CDT Height 182.9 cm (6') 02/20/2019 9:00 AM CDT Body Mass Index 31.06 02/20/2019 9:00 AM CDT Plan of Treatment Health Maintenance Due Date Last Done Comments Hepatitis C Virus (HCV) Screening 1955 TdaP Immunization 1955 Colonoscopy 1998 Colorectal Cancer Screening 1998 Cologuard 10/18/2003 Immunochemical Fecal Occult Blood 10/18/2003 Pneumococcal Immunization (5 0+ years) (1 of 1 - PCV) 10/18/2003 Zoster Immunization (1 of 2) 10/18/2003 Influenza Immunization (#1) 2024 SARS-COV-2 Immunization (3 - season) 2024 05/28/2021, 05/07/2021 Respiratory Syncytial Virus (RSV) Immunization (Adult) (1 - 1-dose 75+ series) 2028 Hepatitis B Immunization Aged Out No longer eligible based on patient's age to complete this topic Meningococcal Immunization (ACWY) Aged Out No longer eligible b ased on patient's age to complete this topic Rotavirus Immunization Aged Out No lo nger eligible based on patient's age to complete this topic [place] [address] [place] [address] MEDICARE Care Teams Liquid Center Assembler Relationship Specialty Start Date End Date Robert Arreaga MD [address] [place] [phone] PCP - General Family Medicine 09/02/20
--- OUTSIDE RECORDS SUMMARY | 2024-10-12 14:57 | XMS_ITS | Referral Summary ---
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 Gender Identity Not on file Sexual Orientation Not on file Last Filed Vital Signs Vital Sign Reading Time Taken Comments Blood Pressure 120/62 12/01/2021 3:35 PM CDT Pulse 74 11/24/2021 2:46 PM CDT Temperature 36.7 C (98 F) 06/02/2021 3:13 PM HANDLE TURNER Respiratory Rate 18 11/24/2021 2:46 PM CDT Oxygen Saturation 92% 11/24/2021 2:46 PM CDT Inhaled Oxygen Concentration - - Weight 111.8 kg (246 lb 6.4 oz) 12/01/2021 3:35 PM CDT Height 180.3 cm (5' 11) 12/01/2021 3:35 PM CDT Body Mass Index 34.37 12/01/2021 3:35 PM CDT Plan of Treatment Not on file Insurance MEDICARE [facility] O MEDICARE BLUE ACC CHOICE OOS Member Subscriber Plan / Payer (Ef fective 2022-Present) Name:Juanjo Early Relation to Subscriber:Self Name:Juanjo Early Payer ID:[id number] (NAIC) Type: [employer] Address: [address] [place] [id number] Care Teams Sack Repairer Relationship Specialty Start Date End Date Robert Arreaga MD PCP - General Emergency Medicine 03/10/21
--- OUTSIDE RECORDS SUMMARY | 2024-10-12 14:57 | XMS_ITS | Continuity of Care Document ---
Author Organization [facility] Address [address] [place] [address] [address] [place] [address] Phone Care Team Providers Care Shower Screen Installer Name Role Phone Gogo Sibley Unavailable Unavailable Advance Directives Directive Yes / No Effective Date File Name No Information Encounters Encounter Description Practice Location Reason(s) For Visit Diagnoses Date Provider Providers Copied on Encounter [facility], [id number] [place] [address] [address], [place], [place], [id number], [place] tel:[phone] [facility] [place] No Information Sep-0 1-200 5 Maryjo Bowens. [address] [facility] , [address], [place], [address], [place]. tel:[phone] Family History Family Member Type Diagnosis Age At Onset No Information Payers Payer name Insurance type Covered constitution party ID Authoriza tion(s) No Information Social History Type Description Quantity Date Captured Comments Sex Male Smoking Status No Information Chief Complaint And Reason For Visit No Information Reason For Referral Reason For Referral No Information History Of Present Illness Encounter Date Complaint History Of Prese nt Illness No Information Functional Status Date Functional Assessmen t No Information Instructions Date Instruction Additional Infor mation No Information Assessments Type Assessment Date No Information Patient Care Teams Name Effective Dates (start - stop) Status Members No Information
[2024-10-12 15:39] LABS: Hematocrit 43.9 % (42.0-52.0); Hemoglobin 14.4 g/dL (14.0-18.0); Mean Corpuscular HGB Conc 32.8 g/dl (32-36); Mean Corpuscular Hemoglobin 28.8 pg (26-34); Mean Corpuscular Volume 87.8 fl (80-100); Mean Platelet Volume 9.6 fl (7.4-10.4); Platelet Count Result 184 k/mm3 (150-375); Red Cell Distribution Width 13.9 % (11.5-14.5); White Blood Count 6.4 K/mm3 (4.5-10.0)
[2024-10-12 15:40] LABS: Add Urine Microscopic? NO; Appearance Urine Clear (Clear); Bilirubin Urine Negative (Negative); Blood Urine Negative (Negative); Color Urine Yellow (Yellow); Glucose Urine UA Negative (Negative); Ketones Urine Negative (Negative); Leukocyte Esterase Ur Negative LEU/UL (Negative); Nitrate Urine Negative (Negative); Protein Urine Negative (Negative); Specific Grav Ur 1.023 (1.001-1.035)
[2024-10-12 15:53] LABS: Alanine Aminotransferase 16 U/L (6-50); Albumin Level 4.2 g/dL (3.5-5.1); Alkaline Phosphatase 76 U/L (38-126); Anion Gap 5 mmol/L (4-12); Aspartate Amino Transferase 22 U/L (17-59); Bilirubin,Total 0.6 mg/dL (0.2-1.3); Blood Urea Nitrogen 19 mg/dL (9-20); Calcium 9.1 mg/dL (8.4-10.2); Carbon Dioxide 27 mmol/L (22-30); Chloride 104 mmol/L (98-107); Cholesterol 189 mg/dL (0-200); Estimated Glomerular Filt Rate > 60; Glucose 121 mg/dL (65-110); HDL Direct 41 mg/dL; Potassium 4.4 mmol/L (3.4-5.0); Sodium 136 mmol/L (137-145); Triglycerides 348 mg/dL (<150)
[2024-10-12 16:01] LABS: Hemoglobin A1C 6.7 % (<5.7)
[2024-10-12 16:05] LABS: LDL Cholesterol Direct 81 mg/dL
[2024-10-12 17:40] LABS: Creatinine Urine 140.7 mg/dL
[2024-10-12 17:45] LABS: MALB Creatinine Ratio 7.5 mg/g (0-30); Microalbumin Urine Random 10.5 mg/L (0-16.7)
[2024-10-16 17:03] LABS: Thyroid Peroxidase Antibodies. <1 IU/mL (<9)
== END 2024-10-12 14:52 | disposition home or self-care (01) ==
PROVIDERS: PCP Emergency Medicine; Visit Provider Emergency Medicine
DX: E11.9 Type 2 diabetes mellitus without complications (principal); E78.5 Hyperlipidemia, unspecified; I10 Essential (primary) hypertension; R10.30 Lower abdominal pain, unspecified
CPT/HCPCS: 36415; 73521; 80053; 80061; 81003; 82043; 83036; 84439; 84443; 85027; 86376; 87086

== ENCOUNTER 2024-11-06 12:47 | Outpatient (CLI) | payer BC, MEDICARE, SELFPAY ==
--- NOTE | ~2024-11-06 | CT_ITS ---
CLINICAL INDICATION: Right lower quadrant and right groin pain COMPARISON: 05/30/2020. TECHNIQUE: Multiple contiguous axial images of the abdomen and pelvis were performed without the admi nistration of intravenous contrast The dose-length product (DLP) was 1069.89 mGy-cm. Automated exposure control and iterative reconstruction technique were employed. FINDINGS/OBSERVATIONS: Visualized lower thorax: The bilateral lung bases are clear. The heart is of normal size, without pericardial effusion. Small hiatal hernia is present. Liver: The liver demonstrates homogeneous attenuation and is not enlarged. Gallbladder and biliary system: The gallbladder is only minimally distended, contains multiple lamellated stones, and is otherwise un remarkable. Pancreas: Limited evaluation of the pancreas secondary to the lack of intravenous contrast. Spleen: The spleen demonstrates homogeneous attenuation and is not enlarged. Kidneys: 3 mm nonobstructing calculus within the lower pole of the right kidney. Parapelvic cysts within the left kidney, unchanged from 2020. The remainder of the bilateral kidneys are otherwise unremarkable, without hydronephrosis or renal ca lculi. Adrenal glands: Unremarkable. Gastrointestinal tract: Trace fecal stasis within the colon. Appendix: The air-filled appendix is of normal caliber (axial series, images 77 -89) Vasculature: Unremarkable. Lymph nodes: Limited evaluation without intravenous contrast. Pelvic structures: The bladder is only minimally distended, and otherwise unremarkable. The prostate gland is not enlarged. Body wall and musculoskeletal: Small fat-containing right inguinal hernia. Fat-containing umbilical hernia. Age-appropriate degenerative disease within the lumbosacral spine. IMPRESSION: Nonobstructing 3 mm calculus within the lower pole of the right kidney. Fat-containing right inguinal hernia. Fat-containing umbilical hernia. Reviewed, dictated and finalized at location A.
== END 2024-11-06 12:48 | disposition home or self-care (01) ==
LOC: MICIMG 12:48
PROVIDERS: PCP Emergency Medicine; Visit Provider Surgery
DX: N20.0 Calculus of kidney (principal); K40.90 Unilateral inguinal hernia, without obstruction or gangrene, not specified as recurrent; K42.9 Umbilical hernia without obstruction or gangrene
CPT/HCPCS: 74176

== ENCOUNTER 2024-12-04 08:38 | Outpatient (CLI) | payer BC, MEDICARE, SELFPAY ==
--- NOTE | ~2024-12-04 | US_ITS ---
US art doppler w press LE BI INDICATION: Right leg pain TECHNIQUE: Segmental pressures and plethysmographic and Doppler waveforms of the brachial and lower e xtremity arteries were obtained. COMPARISON: None. FINDINGS: Right and left brachial artery pressures of 120 mm Hg and 138 mm Hg, respectively, are concordant (no rmal difference <= 30 mmHg). There is biphasic flow bilaterally throughout the lower extremity arteri es. The right ankle-brachial index (EDITH) is 1.22 (normal >= 0.9-1.0). The right great toe-brachial index (TBI) is 0.28 (normal >= 0.60). The left EDITH is 1.19. The left TBI is 0.58. IMPRESSION: 1. Normal ankle-brachial indices. 2: Diminished bilateral toe brachial indices, right greater than left, consistent with peripheral ar terial disease. Reviewed, dictated and finalized at location A. IMPRESSION: 1. Normal ankle-brachial indices. 2: Diminished bilateral toe brachial indices, right greater than left, consist ent with peripheral arterial disease.
--- OUTSIDE RECORDS SUMMARY | 2024-12-04 08:42 | XMS_ITS | Clinical Summary ---
Author Organization [facility] Address [address] [place] [address] Care Team Providers Care Steel Unloader Name Role Phone Robert Arreaga MD Primary Care Provider [phone] Source Comments [facility],non-owned Affiliates and Associated Physician Practices is amultiple site organization consisting of ambulatory clinics and hospital sitesin [place], [place], [place] and [place]. This disclosure is being madepursuant to the Care Everywhere program and may not contain all information available regarding this patient. Last updated 18.[facility] Allergies No known active allergies Medications * [...] once daily 06/12/2020 Active Cholecalciferol 1.25 MG (10305 UT) Take 1 capsule by mouth every [...] - URINE PROTEIN SCREENING 05/17/2024 INFLUENZA VACCINE (#1) 2025 HEPATITIS B VACCINE Aged Out No [...] age to complete this topic Insurance MEDICARE [facility] Care Teams Steel Unloader Relationship Specialty Start Date End Date Robert Arreaga MD [address] [place] [phone] PCP - General 07/27/22
--- OUTSIDE RECORDS SUMMARY | 2024-12-04 08:42 | XMS_ITS | Clinical Summary ---
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 Gender Identity Not on file Sexual Orientation Not on file Obstetrics History Last Filed Vital Signs Vital Sign Reading Time Taken Comments Blood Pressure 120/62 12/01/2021 3:35 PM CDT Pulse 74 11/24/2021 2:46 PM CDT Temperature 36.7 C (98 F) 06/02/2021 3:13 PM PRINTING PRESS OPERATOR Respiratory Rate 18 11/24/2021 2:46 PM CDT [...] Influenza Vaccine (Season Ended) 2025 Insurance MEDICARE [employer] OOS MEDICARE BLUE ACC CHOICE OOS Member Subscriber Plan / Payer (Ef fective 2022-Present) Name:Sharath Juanjo Mack Relation to Subscriber:Self Name:Juanjo Early Payer ID:[id number] (NAIC) Type:[facility] Address: [facility] [id number] [place] [id number] Care Teams Cognos Architect Relationship Specialty Start Date End Date Robert Arreaga MD PCP - General Emergency Medicine 03/10/21
--- OUTSIDE RECORDS SUMMARY | 2024-12-04 08:42 | XMS_ITS | Referral Summary ---
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 Gender Identity Not on file Sexual Orientation Not on file Last Filed Vital Signs Vital Sign Reading Time Taken Comments Blood Pressure 120/62 12/01/2021 3:35 PM CDT Pulse 74 11/24/2021 2:46 PM CDT Temperature 36.7 C (98 F) 06/02/2021 3:13 PM GMAT TUTOR Respiratory Rate 18 11/24/2021 2:46 PM CDT Oxygen Saturation 92% 11/24/2021 2:46 PM CDT Inhaled Oxygen Concentration - - Weight 111.8 kg (246 lb 6.4 oz) 12/01/2021 3:35 PM CDT Height 180.3 cm (5' 11) 12/01/2021 3:35 PM CDT Body Mass Index 34.37 12/01/2021 3:35 PM CDT Plan of Treatment Not on file Insurance MEDICARE [facility] O MEDICARE BLUE ACC CHOICE OOS Member Subscriber Plan / Payer (Ef fective 2022-Present) Name:Juanjo Early Relation to Subscriber:Self Name:Juanjo Early Payer ID:[id number] (NAIC) Type: [employer] Address: [address] [place] [phone] Care Teams Drug Regulatory Affairs Specialist Relationship Specialty Start Date End Date Robert Arreaga MD PCP - General Emergency Medicine 03/10/21
--- OUTSIDE RECORDS SUMMARY | 2024-12-04 08:42 | XMS_ITS | Clinical Summary ---
Author Organization [facility] Address [address] [place] [address] Phone Care Team Providers Care Electric Motor Winders Assembler Name Role Phone Robert Arreaga MD Primary Care Provider [phone] Allergies Active Allergy Reactions Criticality Noted Date [...] Virus (HCV) Screening 1955 TdaP Immunization 1955 Cologuard 1998 Colonoscopy 1998 Colorectal Cancer Screening 1998 Immunochemical Fecal Occult Blood 1998 Pneumococcal Immunization (5 0+ years) (1 of 1 - PCV) 10/18/2003 Zoster Immunization (1 of 2) 10/18/2003 SARS-COV-2 Immunization (3 - season) 2024 05/28/2021, 05/07/2021 Influenza Immunization (#1) 2025 Respiratory Syncytial Virus (RSV) Immunization (Adult) (1 - 1-dose 75+ series) 2028 Hepatitis B Immunization Aged Out No longer eligible based on patient's age to complete this topic Human Papillomavirus (HPV) Immunization Aged Out No longer eligible b ased on patient's age to complete this topic Meningococcal Immunization (ACWY) Aged Out No longer eligible b ased on patient's age to complete this topic Rotavirus Immunization Aged Out No lo nger eligible based on patient's [place] [id number] [facility] MEDICARE Care Teams Electric Motor Winders Assembler Relationship Specialty Start Date End Date Robert Arreaga MD [address] [place] [id number] PCP - General Family Medicine 09/02/20
== END 2024-12-04 08:39 | disposition home or self-care (01) ==
PROVIDERS: PCP Emergency Medicine; Visit Provider Emergency Medicine
DX: M79.661 Pain in right lower leg (principal)
CPT/HCPCS: 93923